=== PATIENT | female | born 1985 | race Two or more races ===

== ENCOUNTER 2022-05-07 17:14 | Emergency (ER) | payer OTHER ==
[~2022-05-07] VITALS: Ht 152.4 cm; Wt 59.9 kg
--- NOTE | 2022-05-07 17:30 | NUR ---
STAN#[id number] PLACED PATIENT IN 5150 HOLD EFFECTIVE 1730
[2022-05-07 17:45] LABS: BASOPHILS % (AUTO) 0.4 % (0.0-2.0); EOSINOPHILS % (AUTO) 1.1 % (0.0-6.0); HEMATOCRIT 39 % (33-45); HEMOGLOBIN 13.5 g/dL (11.5-14.8); LYMPHOCYTES # (AUTO) 3.2 K/uL (0.8-4.8); LYMPHOCYTES % (AUTO) 31.5 % (20.0-44.0); MEAN CORPUSCULAR HGB CONC 34 g/dl (31.0-36.0); MEAN CORPUSCULAR VOLUME 86 fL (82-100); MONOCYTES # (AUTO) 0.6 K/uL (0.1-1.30); MONOCYTES % (AUTO) 6.4 % (2.0-12.0); NEUTROPHILS # (AUTO) 6.1 K/uL (1.8-8.9); NEUTROPHILS % (AUTO) 60.6 % (43.0-81.0); PLATELET COUNT (AUTO) 485 K/uL (150-450); RED BLOOD CELL COUNT(AUTO) 4.58 MIL/uL (4.0-5.2); WHITE BLOOD COUNT (AUTO) 10.1 K/uL (4.3-11.0)
--- NOTE | 2022-05-07 17:55 | NUR ---
URINE COLLECTED AND SENT TO LAB
[2022-05-07 18:23] LABS: ALANINE AMINOTRANSFERASE 27 U/L (12-78); ALBUMIN 4.4 g/dL (3.4-5.0); ALCOHOL, BLOOD < 3 mg/dL (0-0); ALKALINE PHOSPHATASE 99 U/L (46-116); ASPARTATE AMINOTRANSFERASE 21 U/L (15-37); BILIRUBIN,DIRECT 0.3 mg/dL (0.0-0.2); BILIRUBIN,TOTAL 1.3 mg/dL (0.2-1.0); CALCIUM, SERUM 9.8 mg/dL (8.5-10.1); CARBON DIOXIDE 24 mmol/L (21-32); CHLORIDE 102 mmol/L (98-107); CREATININE 0.7 mg/dL (0.6-1.3); GLUCOSE 107 mg/dL (74-106); POTASSIUM 3.6 mmol/L (3.5-5.1); SODIUM SERUM 139 mmol/L (136-145); TOTAL PROTEIN, SERUM 8.7 g/dL (6.4-8.2); UREA NITROGEN, BLOOD 12 mg/dL (7-18)
[2022-05-07 18:30] LABS: ACETAMINOPHEN 0 ug/ml (10-30)
--- NOTE | 2022-05-07 18:30 | NUR ---
COVID SWAB DONE AND SENT TO LAB
[2022-05-07 18:48] LABS: BILIRUBIN,URINE NEGATIVE (NEGATIVE); COLOR,URINE YELLOW (YELLOW); LEUKOCYTE ESTERASE ,URINE SMALL (NEGATIVE); NITRITE, URINE NEGATIVE (NEGATIVE); PROTEIN,URINE NEGATIVE (NEGATIVE); UGLUCOSE NEGATIVE (NEGATIVE); UROBILINOGEN,URINE 0.2 EU/dL (0.2)
[2022-05-07 19:04] LABS: RBC,URINE 0-2 /HPF (0-2)
[2022-05-07 19:05] LABS: BACTERIA,URINE Moderate /HPF (None Seen); SQUAMOUS EPITHELIAL CELL,UR Moderate /HPF (None Seen)
[2022-05-07 19:15] LABS: TRICHOMONAS,URINE Moderate /HPF (None Seen)
[2022-05-08] MEDS ORDERED: OLANZAPINE 10 MG VIAL IM ONE ×2 (01:12→01:30)
--- NOTE | 2022-05-08 03:00 | NUR ---
PT PROVIDED WITH WARM BLANKET FOR COMFORT.
[2022-05-08] MEDS ORDERED: LORAZEPAM INJ 2 MG/ML VIAL ONE (09:11)
[2022-05-08] MEDS ORDERED: LORAZEPAM INJ 2 MG/ML VIAL IM ONE (09:30)
--- NOTE | 2022-05-08 12:30 | NUR ---
LUNCH TRAY PROVIDED, TOLERATED WELL
--- NOTE | 2022-05-08 13:05 | NUR ---
JAYDA AT BEDSIDE.
--- NOTE | 2022-05-08 18:12 | NUR ---
FAXED CLINICALS TO [place] [facility] [phone]
--- NOTE | 2022-05-08 18:17 | NUR ---
FAXED CLINICALS TO [facility] [phone]
--- NOTE | 2022-05-08 21:40 | NUR ---
AASHISH MEYERS CALLED TO INFORM THAT DR. MARROQUIN IS AWARE AND WILL BE SEEING THE PT IN THE MORNING FOR A PSYCHIATRIC EVALUATION
--- NOTE | 2022-05-08 22:20 | NUR ---
PT WAS SEEN BY JAYDA FROM CRISIS TEAM. PER JAYDA, PT WILL BE SEEN BY DR MOJICA, PSYCHIATRIC IN AM
--- NOTE | 2022-05-09 00:15 | NUR ---
PT AMBULATORY TO RESTROOM WITH STEADY GAIT UNDER SUPERVISION. ADLS DONE. SAFETY MEASURES IN PLACE.
[2022-05-09] MEDS ORDERED: OLANZAPINE 5 MG TABLET PO ONE (09:00)
[2022-05-09] MEDS ORDERED: OLANZAPINE 5 MG TABLET ONE (09:05)
--- NOTE | 2022-05-09 09:09 | NUR ---
PT SLEEPING AT THIS TIME, ABLE TO BE AWAKENED. GIVEN ZYPREXA PO INDICATED, TAKEN BY PT.
[2022-05-09 09:58] VITALS: BP 122/58
--- NOTE | 2022-05-09 10:25 | NUR ---
[employer] Note SW faxed clinical to the following: -[facility] [address] [facility] [address]; Unit TEL: [phone] Intake -[facility] [address], [place] [address]; tel:[phone] FAX:[phone] [address] [place] [address] TEL: [phone] fax: [phone] -[facility] [address] [place] [address]; tel:[phone]; FAX: [phone]
--- NOTE | 2022-05-09 10:35 | NUR ---
SPOKE WITH JAYDA FROM PSYCH INTAKE [phone] AND [facility] WILL GET BACK TO SEE IF THE CAN ACCOMODATE THIS PT
--- NOTE | 2022-05-09 11:05 | NUR ---
Large Animal Veterinarian Note SW received a call from [facility] ([address] [facility] [address]; Unit TEL: [phone], Intake ) to provide admitting information. Pt. will be seen by the attending physician Dr. Head, and will be placed in the South Unit room 129-B. ROSEMARIE informed the ER nurse to do the [id number] (to the number provided [phone]) and set up transport in which the Nurse was agreeable.
--- NOTE | 2022-05-09 11:10 | NUR ---
PT ACCEPTED TO [facility] UNDER DR GEORGE SOUTH UNIT, ROOM 129-B NUMBER FOR REPORT [phone]
--- NOTE | 2022-05-09 11:15 | NUR ---
TRANSPORTATION [facility] ETA [phone]
[2022-05-09] MEDS ORDERED: LORAZEPAM 1 MG TABLET PO ONE (11:30)
[2022-05-09] MEDS ORDERED: LORAZEPAM 1 MG TABLET ONE (12:52)
--- NOTE | 2022-05-09 13:15 | NUR ---
REPORT GIVEN TO DEVON COELHO AT [facility]. TRANSPORT AMBULANCE AT BEDSIDE TO TRANSPORT. STABLE CONDITION.
--- NOTE | 2022-05-09 13:29 | NUR ---
TRANSPORTED TO [facility]. STABLE CONDITION.
== END 2022-05-09 13:30 ==
LOC: EDBD 17:21 → ER 17:21
DX: R17 Unspecified jaundice (principal); F15.90 Other stimulant use, unspecified, uncomplicated; F23 Brief psychotic disorder; Z20.822 Contact with and (suspected) exposure to COVID-19
CPT/HCPCS: 99285; 85025; 80048; 87086; 80076; 84703; 81001; 36415; 84702; 87426; 80143; 80320; 80307; 96372 ×2; C9803; J2060; J3490; G0480